=== PATIENT | male | born 1950 | race Caucasian/White ===

== ENCOUNTER → 2021-01-10 | Outpatient (CLI) | payer MEDICARE ==
--- NOTE | 2021-01-10 14:46 | XR ---
EXAMINATION TYPE: XR chest 2V DATE OF EXAM: 01/10/2021 COMPARISON: 11/05/2014 TECHNIQUE: PA and lateral views submitted. HISTORY: Presurgical FINDINGS: The lungs are clear and there is no pneumothorax, pleural effusion, or focal pneumonia. Heart size prominent and there is stable calcified granuloma right upper lobe. Hypertrophic and degenerative yolette nge of the spine. Bilateral hilum stable relative to the prior exam. IMPRESSION: 1. No acute process.
[2021-01-10 15:25] LABS: Appearance,Urine Clear (Clear); Bilirubin,Urine Negative (Negative); Blood,Urine Negative (Negative); Color,Urine Light Yellow; Glucose,Urine (UA) Negative (Negative); Ketones,Urine Negative (Negative); Leukocyte Esterase,Urine Negative (Negative); Nitrite,Urine Negative (Negative); Protein,Urine Negative (Negative); Urobilinogen,Urine <2.0 mg/dL (<2.0)
[2021-01-10 18:35] LABS: HCT 44.3 % (39.6-50.0); HGB 14.8 g/dL (13.0-17.0); MCH 33.2 pg (27.0-32.0); MCHC 33.4 g/dL (32.0-37.0); MCV 99.3 fL (80.0-97.0); Mean Platelet Volume 9.7 fL (9.5-12.2); Platelet Count 288 X 10*3/uL (140-440); RBC 4.46 X 10*6/uL (4.40-5.60); WBC 6.67 X 10*3/uL (4.50-10.00)
[2021-01-11 04:07] LABS: African American GFR (CKD) 88.6 (60.0-200.0); Albumin 4.6 g/dL (3.80-4.90); Albumin/Globulin Ratio 1.7 (1.60-3.17); Anion Gap 13.6 mmol/L (4.00-12.00); Calcium 9.1 mg/dL (8.7-10.3); Carbon Dioxide 22.4 mmol/L (21.6-31.8); Globulin 2.7 g/dL (1.6-3.3); Non-African American GFR(CKD) 76.5 (60.0-200.0); Potassium 4.6 mmol/L (3.5-5.5); Total Bilirubin 0.7 mg/dL (0.2-1.2); Total Protein 7.3 g/dL (6.2-8.2)
== END | disposition home or self-care (01) ==
LOC: LABWHC1 13:55
PROVIDERS: ATTEND Pediatrics
DX: Z01.818 Encounter for other preprocedural examination (principal); M54.16 Radiculopathy, lumbar region; M47.817 Spondylosis without myelopathy or radiculopathy, lumbosacral region; M43.16 Spondylolisthesis, lumbar region; M41.26 Other idiopathic scoliosis, lumbar region; M41.86 Other forms of scoliosis, lumbar region; M51.26 Other intervertebral disc displacement, lumbar region; M51.86 Other intervertebral disc disorders, lumbar region; R53.1 Weakness; R20.2 Paresthesia of skin
CPT/HCPCS: 36415; 71046; 80053; 81003; 85027

== ENCOUNTER → 2022-01-08 | Outpatient (CLI) | payer MEDICARE ==
--- NOTE | 2022-01-08 15:23 | US ---
EXAMINATION TYPE: US venous doppler duplex LE RT DATE OF EXAM: 01/08/2022 3:11 PM COMPARISON: NONE CLINICAL HISTORY: I82.401,I82.402,M79.661,M79.662 PAIN SWELLING. SIDE PERFORMED: Right TECHNIQUE: The lower extremity deep venous system is examined utilizing real time linear array sonog yin with graded compression, doppler sonography and color-flow sonography. VESSELS IMAGED: Common Femoral Vein Deep Femoral Vein Greater Saphenous Vein * Femoral Vein Popliteal Vein Small Saphenous Vein * Proximal Calf Veins (* superficial vessels) Right Leg: Negative for DVT Technically difficult study due to extensive swelling. IMPRESSION: 1. Right lower extremity ultrasound negative for deep venous thrombosis. 2. There is limitation due to edema.
== END | disposition home or self-care (01) ==
LOC: RADUSWWP 14:08
PROVIDERS: ATTEND Orthopaedic Surgery
DX: I82.401 Acute embolism and thrombosis of unspecified deep veins of right lower extremity (principal); I82.402 Acute embolism and thrombosis of unspecified deep veins of left lower extremity

== ENCOUNTER → 2024-12-02 | Outpatient (CLI) | payer MEDICARE ==
--- NOTE | 2024-12-02 16:05 | MR ---
EXAMINATION TYPE: MR shoulder RT wo con DATE OF EXAM: 12/02/2024 1:42 PM COMPARISON: None. CLINICAL INDICATION: Male, 74 years old with history of M25.511 PAIN IN RIGHT SHOULDER, Right shoulde r pain, S/P fall September 2024. IV Contrast: cc (None if empty) TECHNIQUE: Multiplanar, multisequence imaging of the right shoulder is performed without contrast. FINDINGS: There are complete full-thickness tears of the infraspinatus, supraspinatus and subscapularis tendons with retraction of the musculotendinous junction medially. There is marked osteoarthritic change of the AC joint. There is a moderate glenohumeral joint effusion. There is subacromial and subdeltoid bursitis. The biceps tendon is normal in signal and intensity but it is dislocated medially. The biceps anchor is intact and there is no evidence of labral tear. IMPRESSION: 1. Full-thickness complete tears of the supraspinatus, infraspinatus and subscapularis tendons with r etraction medially. 2. Subacromial and subdeltoid bursitis. 3. Marked osteoarthritic change of the AC joint. 4. Dislocated biceps tendon medially with no biceps tendon tear or tear of the cartilaginous labrum. 5. Moderate glenohumeral joint effusion. [facility], , 12/02/2024 4:03 PM
== END | disposition home or self-care (01) ==
LOC: RADMRIMAIN 12:39
PROVIDERS: ATTEND Orthopaedic Surgery
DX: M75.121 Complete rotator cuff tear or rupture of right shoulder, not specified as traumatic (principal); M19.011 Primary osteoarthritis, right shoulder; S43.084D Other dislocation of right shoulder joint, subsequent encounter; M75.51 Bursitis of right shoulder

== ENCOUNTER → 2024-12-17 | Outpatient (CLI) | payer MEDICARE ==
[2024-12-17 15:14] LABS: Basophils # (A) 0.07 X 10*3/uL (0.00-0.10); Basophils % (A) 1.1 %; Eosinophils # (A) 0.15 X 10*3/uL (0.04-0.35); Eosinophils % (A) 2.4 %; HCT 47.1 % (39.6-50.0); HGB 15.3 g/dL (13.0-17.0); Immature Grans, Automated 0.50 %; Lymphocytes # (A) 1.90 X 10*3/uL (0.90-5.00); Lymphocytes % (A) 30.7 %; MCH 31.4 pg (27.0-32.0); MCHC 32.5 g/dL (32.0-37.0); MCV 96.5 FL (80.0-97.0); Monocytes # (A) 0.93 X 10*3/uL (0.20-1.00); Monocytes % (A) 15.0 %; NRBC Per 100 WBC 0 X 10*3/uL (0.00-0.01); Neutrophils # (A) 3.11 X 10*3/uL (1.80-7.70); Neutrophils % (A) 50.3 %; Platelet Count 241 X 10*3/uL (140-440); RBC 4.88 X 10*6/uL (4.40-5.60); RDW 12.9 % (11.5-14.5); WBC 6.19 X 10*3/uL (4.50-10.00)
[2024-12-17 15:21] LABS: Anion Gap 8.2 mmol/L (4.00-12.00); Carbon Dioxide 25.8 mmol/L (21.6-31.8); Chloride 100.0 mmol/L (96-109); Potassium 4.8 mmol/L (3.5-5.5); Sodium 134.0 mmol/L (135-145)
== END | disposition home or self-care (01) ==
LOC: LABPAT 09:46
PROVIDERS: ATTEND Orthopaedic Surgery
DX: M75.41 Impingement syndrome of right shoulder (principal); Z01.812 Encounter for preprocedural laboratory examination
CPT/HCPCS: 80051; 85025